=== PATIENT | female | born 1965 | race Caucasian/White ===

== ENCOUNTER 2020-01-11 18:49 | Emergency (ER) | payer BC ==
[~2020-01-11] VITALS: Ht 170.2 cm; Wt 59.0 kg
[2020-01-11 19:00] VITALS: BP_SYST 133
--- NOTE | 2020-01-11 19:16 | NUR ---
Pt to amb1
[2020-01-11 20:02] LABS: BASOPHILS # (AUTO) 0.1 K/uL (0.0-0.2); BASOPHILS % (AUTO) 0.9 % (0.0-2.0); EOSINOPHILS # (AUTO) 0.1 K/uL (0.0-0.4); EOSINOPHILS % (AUTO) 0.9 % (0.0-4.0); HEMATOCRIT 29.5 % (36-48); HEMOGLOBIN 9.5 g/dL (12.0-16.0); LYMPHOCYTES # (AUTO) 1.1 K/uL (1.0-5.5); MEAN CORPUSCULAR HEMOGLOBIN 31 pg (27-31); MEAN CORPUSCULAR HGB CONC 32 % (32-36); MEAN CORPUSCULAR VOLUME 98 fL (79.0-98.0); MONOCYTES # (AUTO) 0.7 K/uL (0.0-1.0); MONOCYTES % (AUTO) 7.4 % (1.7-9.3); NEUTROPHILS # (AUTO) 7.9 K/uL (1.8-7.7); NEUTROPHILS % (AUTO) 79.8 % (40.0-70.0); PLATELET COUNT (AUTO) 170 K/uL (130-430); RED BLOOD CELL COUNT(AUTO) 3.02 MIL/uL (4.2-6.2); RED CELL DISTRIBUTION WIDTH 22.3 % (9.0-15.0); WHITE BLOOD COUNT (AUTO) 9.9 K/uL (4.8-10.8)
[2020-01-11 20:15] LABS: CALCIUM 7.8 mg/dL (8.4-11.0); CREATININE 0.62 mg/dL (0.55-1.30)
[2020-01-11 20:20] LABS: ALBUMIN 1.5 g/dL (3.4-4.8); TOTAL BILIRUBIN 0.8 mg/dL (0.0-1.0)
--- NOTE | 2020-01-11 20:20 | NUR ---
Patient to ER bed 3 to gown for evaluation. Side rails up.
--- NOTE | 2020-01-11 20:23 | NUR ---
ER at bedside examining patient.
--- NOTE | 2020-01-11 20:25 | NUR ---
Pt brought in by ambulance. EMS states that patient was at [facility] in [place] today where she was picked up. Pt is awake, alert, oriented x4. Pt states that she has 20 second tonic/clonic seizure today. Pt states that she has stage 4 kidney cancer that has metastacized to lungs. Pt states that she was feeling lethargic and weak all day. Pt states that she has mild headache at this time. Pt Resting in ED bed with mother bedside. Vss
--- NOTE | 2020-01-11 21:00 | NUR ---
Pt turned in Bed.
--- NOTE | 2020-01-11 22:13 | NUR ---
Pt changed and cleaned. New pamper provided by family.
--- NOTE | 2020-01-11 23:00 | NUR ---
Pt turned/repositioned in bed
--- NOTE | 2020-01-11 23:30 | NUR ---
Pt given ensure and pudding per . Pt consumed approx 250-300 calories.
--- NOTE | 2020-01-12 | NUR ---
Pt resting in ED bed. Given additional blanket per request of family.
--- NOTE | 2020-01-12 00:35 | NUR ---
Pt resting in ed bed comfortably. No acute distress. VSS
--- NOTE | 2020-01-12 01:13 | NUR ---
# 16 FR In and Out catheter with use of sterile technique. Immediate return of 200 ml dark peace urine noted. Urine sample collected and sent to lab. Pt tolerated procedure well. Patient unable to toilet self.
[2020-01-12 01:17] LABS: BILIRUBIN,URINE 2+ (NEGATIVE); BLOOD, URINE NEGATIVE (NEGATIVE); CLARITY/URINE CLOUDY (CLEAR); COLOR,URINE YELLOW (YELLOW); GLUCOSE,URINE NEGATIVE (NEGATIVE); KETONES,URINE 1+ (NEGATIVE); LEUKOCYTE ESTERASE ,URINE TRACE (NEGATIVE); NITRITE, URINE NEGATIVE (NEGATIVE); PROTEIN URINE 1+ (NEGATIVE)
[2020-01-12 01:55] LABS: BACTERIA,URINE MANY /HPF (None Seen); HYALINE CASTS, URINE 0-10 /LPF (None Seen)
--- NOTE | 2020-01-12 02:00 | NUR ---
Pt Adjusted, turned in bed. To position of comfort.
--- NOTE | 2020-01-12 02:33 | NUR ---
Pt resting in ED bed, No acute distress.
[2020-01-12] MEDS ORDERED: NACL 0.9% 1,000 ML IV ONE (02:45)
--- NOTE | 2020-01-12 03:33 | NUR ---
Pt Adjusted, turned in bed. To position of comfort.
--- NOTE | 2020-01-12 04:00 | NUR ---
Pt resting in ED bed. Given additional [place] for comfort.
--- NOTE | 2020-01-12 04:15 | NUR ---
Pt Adjusted, turned in bed. To position of comfort.
--- NOTE | 2020-01-12 04:45 | NUR ---
Pt resting in ED bed. No acute distress. Pt denies any discomfort at this time.
--- NOTE | 2020-01-12 05:00 | NUR ---
Pt Adjusted, turned in bed. To position of comfort.
[2020-01-12] MEDS ORDERED: DIPHENHYDRAMINE INJ 50 MG/ML VIAL IVP ONE (05:15)
--- NOTE | 2020-01-12 05:20 | NUR ---
Report called to Melani [phone] at [facility].
[2020-01-12] MEDS ORDERED: DIPHENHYDRAMINE INJ 50 MG/ML VIAL ONE (05:21)
[2020-01-12 05:25] VITALS: BP_SYST 99
--- NOTE | 2020-01-12 05:25 | NUR ---
Patient given written and verbal discharge instructions and verbalizes understanding. ER MD discussed with patient the results and treatment provided. Patient in stable condition. ID arm band removed. IV catheter removed intact and dressing applied, no active bleeding. Rx of Keflex given. Patient educated on pain management and to follow up with PMD. Pain Scale 0/10. Opportunity for questions provided and answered. Medication side effect fact sheet provided.
== END 2020-01-12 05:25 | disposition home or self-care (01) ==
LOC: SED 18:49
DX: R56.9 Unspecified convulsions (principal); Z85.528 Personal history of other malignant neoplasm of kidney; Z88.0 Allergy status to penicillin
CPT/HCPCS: 36415; 70450; 80053; 81000; 82962; 85025; 87086; 87186; 96374; 99284; J1200; J7030